=== PATIENT | male | born 1960 | race Caucasian/White ===

== ENCOUNTER 2019-01-10 12:30 | Inpatient (IN) | payer BC ==
[2019-01-29] MEDS ORDERED: MORPHINE SULFATE 4 MG/ML SYRINGE IV PRN (12:44)
[2019-01-29] MEDS ORDERED: HYDROmorphone 0.5 MG/0.5 ML SYRINGE IVP PRN (12:44)
[2019-01-31] MEDS ORDERED: TRANEXAMIC ACID 1,000 MG in SODIUM CHLORIDE 0.9% 100 ML IVPB ONE ×4 (05:00)
[2019-01-31] MEDS ORDERED: ONDANSETRON 4 MG/2 ML VIAL IVP ONE (05:00)
[2019-01-31] MEDS ORDERED: ACETAMINOPHEN TAB 500 MG TAB PO ONE (05:00)
[2019-01-31] MEDS ORDERED: ceFAZolin IN SWFI 2 GM/20 ML SYRINGE IVP ONE (05:00)
[2019-01-31] MEDS ORDERED: ROPIVACAINE 246.25 MG, EPINEPHrine 0.5 MG, KETOROLAC 30 MG, cloNIDine HCL/PF 80 MCG, WA... MISCELLANE ONE ×5 (08:30)
[2019-01-31] MEDS ORDERED: ROPIVACAINE 1,100 MG, SODIUM CHLORIDE 0.9% 500 ML 330 ML MISCELLANE PRN ×2 (10:13)
[2019-01-31] MEDS: LACTATED RINGERS 1,000 ML IV SCH ×2 (10:20→15:43)
[2019-01-31] MEDS ORDERED: LIDOCAINE 1% 20 ML VIAL (10MG/ML) FOR IV START INTRADERMA ONE (10:20)
[2019-01-31] MEDS ORDERED: DEXAMETHASONE SOD PHOS (MDV) 100 MG/10 ML VIAL IV ONE (10:21)
[2019-01-31] MEDS ORDERED: fentaNYL (PF) 50 MCG/ML 2 ML AMP IV ONE (10:31)
[2019-01-31] MEDS ORDERED: MIDAZOLAM 2 MG/2 ML VIAL IV ONE (10:31)
--- NOTE | 2019-01-31 10:49 | P.ONQ ---
Anesthesiology Proc Note - PNB - Peripheral Nerve Block Performed Left Adductor Canal Infusion Time Out Performed: Yes Procedure Start Time: 10:32 Procedure Stop Time: 10:40 Indication: Acute Post-Operative Pain, Requested by physician (Dr Maza) Sedation Type: Sedate with meaningful contact maintained Preparation: Sterile Dressing Position: Supine Catheter: Indwelling Needle Types: On-Q Needle Size: 100mm (4") Needle Gauge: 20 Technique: Ultrasound Injectate: 0.5% Ropivacaine (see comment for volume) (30 mls) Blood Aspirated: No Pain Paresthesia on Injection Noted: No Resistance on Injection: Normal Events: Uneventful and Well Tolerated
[2019-01-31] MEDS ORDERED: TRANEXAMIC ACID 1,000 MG/10 ML VIAL ONE (11:16)
[2019-01-31] MEDS ORDERED: fentaNYL (PF) 50 MCG/ML 2 ML AMP ONE (11:16)
[2019-01-31] MEDS ORDERED: PROPOFOL 10 MG/ML 20 ML VIAL IV ONE (11:16)
[2019-01-31] MEDS ORDERED: MIDAZOLAM 2 MG/2 ML VIAL ONE (11:16)
[2019-01-31] MEDS ORDERED: SODIUM CHLORIDE 0.9% 100 ML BAG ONE (11:16)
[2019-01-31] MEDS ORDERED: ceFAZolin 3,000 MG in SODIUM CHLORIDE 0.9% IRRIGATIO 3,000 ML IRRIGATION ONE (11:19)
[2019-01-31] MEDS ORDERED: HYDROcodone/APAP 7.5-325MG 1 EACH TAB PO PRN (13:33)
[2019-01-31] MEDS ORDERED: HYDROmorphone 0.5 MG/0.5 ML SYRINGE IVP PRN ×2 (13:33)
[2019-01-31] MEDS ORDERED: hydrOXYzine PAMOATE 25 MG CAP PO PRN (13:33)
[2019-01-31] MEDS ORDERED: NA PHOS,M-B/NA PHOS,DI-BA 133 ML ENEMA RECTAL PRN (13:33)
[2019-01-31] MEDS ORDERED: MAGNESIUM HYDROXIDE 2,400 MG/10 ML CUP PO PRN (13:33)
[2019-01-31] MEDS ORDERED: ONDANSETRON 4 MG/2 ML VIAL IVP PRN (13:33)
[2019-01-31] MEDS ORDERED: HYDROmorphone 1 MG/ML 1 ML SYRINGE IVP PRN (13:33)
[2019-01-31] MEDS ORDERED: NALOXONE 0.4 MG/ML 1 ML VIAL IV PRN (13:33)
[2019-01-31] MEDS ORDERED: BISACODYL 10 MG SUPP RECTAL PRN (13:33)
[2019-01-31] MEDS ORDERED: LACTATED RINGERS 1,000 ML IV SCH (13:45)
[2019-01-31 14:00] VITALS: RESP 16
--- NOTE | 2019-01-31 14:04 | XR ---
EXAMINATION TYPE: XR knee limited LT DATE OF EXAM: 01/31/2019 COMPARISON: NONE HISTORY: 58-year-old male evaluation for postoperative abnormality and alignment TECHNIQUE: 2 views FINDINGS: Images show placement of left total knee arthroplasty. Both proximal tibial and distal femoral compon ents of the prosthesis appear well seated without periprosthetic fracture. Soft tissue air as well as intra-articular air compatible with recent operation. Alignment grossly anatomic. IMPRESSION: Uncomplicated postoperative appearance left total knee arthroplasty.
[2019-01-31 15:12] VITALS: BMI 27.2
[2019-01-31 16:45] VITALS: BP 157/88; PULSE 56; TEMP 97.7
--- NOTE | 2019-01-31 18:50 | P.OP ---
Date of Procedure: 01/31/19 Procedure(s) Performed: PREOPERATIVE DIAGNOSIS: Left knee severe osteoarthritis with genu varum POSTOPERATIVE DIAGNOSIS: Left knee severe osteoarthritis with genu varum OPERATION: Left knee cemented total replacement arthroplasty. ANESTHESIA: Spinal ESTIMATED BLOOD LOSS: 100 ml. REGISTERED PHARMACY TECHNICIAN: Keke Villanueva PA-C (assistance with: patient positioning, retraction, exposure, hemostasis, leg positioning, implantation, irrigation, closure, dressing) COMPLICATIONS: None apparent. COMPONENTS IMPLANTED: Persona system from [employer] INDICATIONS: Mr. Jade is a 58-year-old male with a history of left knee osteoarthritis. Conservative treatment has been tried and has been unsuccessful in controlling symptoms adequately. The operation of knee replacement has been discussed at length in the office, as well as potential risks and complications. These are inclusive of, but not limited to: bleeding, infection, scarring, discomfort, blood vessel and nerve damage, need for further surgery, failure to relieve symptoms, persistence, recurrence, or worsening of problems, loosening, dislocation, wear, blood clot, pulmonary embolism, , gait dysfunction, stiffness, and other risks as discussed in the office. The patient elects to proceed and the consent form has been signed. PROCEDURE: The patient was taken to the operating room and positioned on the operating room table in the supine position. Anesthesia was initiated. Care was taken to make sure that all pressure points were adequately padded. The operative lower extremity was prepped and draped in the usual aseptic fashion using ChloraPrep. Ioban drape was used for the case and the patient received intravenous antibiotics within one hour of the incision. A pneumotourniquet and leg velasco were used for the case. The limb was exsanguinated with an Esmarch bandage and the tourniquet was inflated to 350 mmHg. Time-out was called confirming the patient's identity, side, procedure and administration of antibiotics and tranexamic acid, 1 g IV. The incision was then created midline directly over the knee, carried down through skin and into the subcutaneous tissues and down to fascia. Full thickness subcutaneous medial flap was developed. Medial parapatellar arthrotomy was performed and the interior of the knee was inspected. There was end-stage osteoarthritis of the knee with a mild to moderate genu varum type deformity. The fat pad was excised and proximal medial release on the tibia was completed using meticulous dissection and a curved osteotome. The anterior cruciate ligament was taken down. Note was made of significant attrition of the anterior and significant degenerative appearance of the posterior cruciate ligaments. The exposure was excellent. The knee was flexed 90 degrees and the patella was everted. A spot was chosen on the femur approximately 1 cm anterior to the posterior cruciate ligament insertion and an intramedullary hole was created within the femur. The intramedullary guide was then set to 5 degrees of valgus. The distal cutting block was attached and pinned into position. An appropriate amount of distal femoral resection was set. The oscillating saw was then used to make the distal femoral cut. This cut was confirmed to be flat with the flat end of an osteotome . The retractors were placed around the tibia and the tibial surface was addressed. The angle and depth of resection was adjusted using an extramedullary cutting guide. The guide had a built-in 3 degree posterior slope cut. Once the cutting guide was adjusted appropriately and in line with the axis of the tibia and confirmed to be in good position in relation to the second metatarsal and transmalleolar axis, the tibial cut was then created with protection of the posterior neurovascular structures and the collateral ligaments. The tibial cut surface was removed and sized. Femoral sizing was then accomplished using anterior referencing. Care was taken to analyze the posterior condyles for signs of deficiency or severe wear, and adjustments to the guide were made, as appropriate. 3 degree external rotation pins were placed. The cutting jig for the femur was applied to these pins. The planned cuts were further analyzed prior to performing them with the oscillating saw. No femoral notching was produced. Bone fragments were removed and the cut surfaces were finished, as necessary, with a reciprocating saw. Spacer block technique was then used to confirm that the flexion and extension gaps were equal. Soft tissue releases and adjustment of the tibial and/or femoral cuts were made, as necessary, until the gaps were equal. This included release of the posterior cruciate ligament, which was tight in this patient. The femur was then further finished for a posterior cruciate ligament substituting component. Patellar resurfacing was performed using a reamer. The size of the required patellar component was estimated and the patellar surface was then reamed down to a residual thickness which would recreate the upper sioux thickness with the component. The exact placement of the patellar component was adjusted for position based on preoperative x-rays and intraoperative findings. Prior to placing trial components, anesthetic solution consisting of ropivicaine with epinephrine, ketorolac, and clonidine was injected carefully and methodically in a grid pattern using aspiration technique into the soft tissue around the knee circumferentially, starting with the deeper tissues first and progressing to fascia, and then finally the skin/subcutaneous tissue. Particular care was taken when injecting the posterior capsule. The trial components were inserted. The tibial tray was allowed to self center and the patella was noted to track very well. The position of the tibial component was marked and the tibia was then finished for a stemmed tibial component. Cement was mixed on the back table and applied to the final components. Trial components were removed and the cut surfaces of the bone were pulse lavaged thoroughly and dried. Cement was then applied to the tibial surface and pressurized into the surface using finger pressurization technique. The tibial component was then applied and excess cement was removed after it was impacted securely and noted to be flush with the cut surface. In similar fashion, the cement was applied to the cut femoral surface, pressurized in using finger pressurization and the component was impacted into place. Excess cement was removed. The polyethylene spacer was then implanted and locked into position. The patellar component was then applied in similar technique and a patellar clamp was used to hold the patella in place as the cement hardened. Once the cement had fully hardened, the knee was reinspected. Any other cement extrusion was removed and final kinematic testing showed range of motion from 0 to 130 degrees with excellent stability, both medially and laterally and appropriate alignment of the leg. Patellar tracking was excellent. The knee was then thoroughly pulse lavaged with normal saline. The tourniquet was deflated and hemostasis was obtained with electrocautery and IV tranexamic acid, 1 g given prior to inflation of the tourniquet and another gram given at the time of closure. Closure was with #2 Ethibond in the fascia and supplemented with #2 Quill, 2-0 Vicryl suture was used for the subcutaneous tissues and 3-0 Quill for the skin. Dermabond/Steri-Strips were then applied. A lightly compressive dressing was applied using Webril and an Paul wrap. The patient was then transferred to stretcher and taken to the recovery room in stable condition. Sponge and needle counts were correct.
[2019-01-31] MEDS ORDERED: ceFAZolin IN SWFI 2 GM/20 ML SYRINGE IVP SCH (20:00)
[2019-01-31] MEDS ORDERED: SENNOSIDES-DOCUSATE SODIUM 1 EACH TAB PO SCH (21:00)
--- NOTE | 2019-02-01 05:26 | P.PN ---
Progress Note - Text Progress Note Date: 02/01/19 58 yo male status post left total knee replacement. Patient received the adduct or canal catheter. Ropivacaine 0.2% at 8 mls/hr. Patient was seen this AM. Patient was sitting in bed comfortably. VAS score of 0/10, no complaints overnight. Assessment and plan: patient will be sent home with the adductor canal pump. Adequate pain control.
[2019-02-01] MEDS ORDERED: RIVAROXABAN 10 MG TAB PO SCH (09:00)
[2019-02-01] MEDS ORDERED: MELOXICAM 7.5 MG TAB PO SCH (09:00)
== END 2019-01-31 18:32 | disposition home or self-care (01) | DRG 470 ==
LOC: 2ORMAIN 01-31 09:15 → 4SSUR 01-31 13:35
PROVIDERS: ADMIT Orthopaedic Surgery; ATTEND Orthopaedic Surgery
PROC: 0SRD0J9 Replacement of Left Knee Joint with Synthetic Substitute, Cemented, Open Approach (ICD-10-PCS; principal; 2019-01-31 10:55)
DX: M17.12 Unilateral primary osteoarthritis, left knee (principal); M21.169 Varus deformity, not elsewhere classified, unspecified knee; I10 Essential (primary) hypertension; Z79.899 Other long term (current) drug therapy; Z98.41 Cataract extraction status, right eye; Z82.49 Family history of ischemic heart disease and other diseases of the circulatory system
CPT/HCPCS: 88300

== ENCOUNTER → 2019-01-20 | Outpatient (CLI) | payer BC ==
[2019-01-20 07:27] LABS: HCT 47.6 % (39.0-53.0); HGB 15.7 gm/dL (13.0-17.5); MCH 32.3 pg (25.0-35.0); MCHC 32.9 g/dL (31.0-37.0); MCV 98.1 fL (80.0-100.0); Mean Platelet Volume 7.3; Platelet Count 279 k/uL (150-450); RBC 4.86 m/uL (4.30-5.90); RDW 12.7 % (11.5-15.5); WBC 5.7 k/uL (3.8-10.6)
[2019-01-20 07:40] LABS: Partial Thromboplastin Time 24.7 sec (22.0-30.0); Prothrombin Time 10.3 sec (9.0-12.0)
[2019-01-20 07:43] LABS: ALT 46 U/L (21-72); AST 32 U/L (17-59); Albumin 4.7 g/dL (3.5-5.0); Alkaline Phosphatase 74 U/L (38-126); Anion Gap 8 mmol/L; Blood Urea Nitrogen 24 mg/dL (9-20); Calcium 9.9 mg/dL (8.4-10.2); Carbon Dioxide 30 mmol/L (22-30); Chloride 103 mmol/L (98-107); Glucose 114 mg/dL (74-99); Potassium 4.5 mmol/L (3.5-5.1); Sodium 141 mmol/L (137-145); Total Bilirubin 1.1 mg/dL (0.2-1.3); Total Protein 7.4 g/dL (6.3-8.2)
[2019-01-20 08:04] LABS: Appearance,Urine Clear (Clear); Bilirubin,Urine Negative (Negative); Blood,Urine Negative (Negative); Color,Urine Yellow; Glucose,Urine (UA) Negative (Negative); Ketones,Urine Negative (Negative); Leukocyte Esterase,Urine Negative (Negative); Nitrite,Urine Negative (Negative); Protein,Urine Trace (Negative); Urobilinogen,Urine <2.0 mg/dL (<2.0)
== END | disposition home or self-care (01) ==
LOC: LABPAT 06:37
PROVIDERS: ATTEND Orthopaedic Surgery
DX: Z01.818 Encounter for other preprocedural examination (principal); Z01.812 Encounter for preprocedural laboratory examination
CPT/HCPCS: 80053; 81003; 85027; 85610; 85730; 87070; 93005

== ENCOUNTER → 2019-02-16 | Outpatient (CLI) | payer BC ==
[2019-02-16 08:21] LABS: Basophils % (A) 1 %; Eosinophils # (A) 0.2 k/uL (0-0.7); Eosinophils % (A) 2 %; HCT 41.9 % (39.0-53.0); Lymphocytes # (A) 1.6 k/uL (1.0-4.8); Lymphocytes % (A) 22 %; MCH 30.4 pg (25.0-35.0); MCHC 30.9 g/dL (31.0-37.0); MCV 98.3 fL (80.0-100.0); Mean Platelet Volume 6.7; Monocytes # (A) 0.4 k/uL (0-1.0); Monocytes % (A) 6 %; Neutrophils % (A) 68 %; RBC 4.26 m/uL (4.30-5.90); RDW 13.3 % (11.5-15.5); WBC 7.4 k/uL (3.8-10.6)
[2019-02-16 08:28] LABS: Platelet Count 645 k/uL (150-450)
[2019-02-16 11:30] LABS: LDL Cholesterol,Calculated 123.2 mg/dL (0.0-131.0); VLDL Calculation 31.8 mg/dL (5.00-40.00)
== END | disposition home or self-care (01) ==
LOC: LABWHC1 07:01
PROVIDERS: ATTEND Family Medicine
DX: Z00.01 Encounter for general adult medical examination with abnormal findings (principal); I10 Essential (primary) hypertension; Z13.220 Encounter for screening for lipoid disorders; Z12.5 Encounter for screening for malignant neoplasm of prostate
CPT/HCPCS: 80061; 85025; 36415; G0103

== ENCOUNTER 2025-04-28 07:38 | Inpatient (IN) | payer MEDICARE, OTHER ==
[2025-04-28] MEDS: SODIUM CHLORIDE 0.9% 1,000 ML IV ONE (08:16)
[2025-04-28] MEDS: KETOROLAC 15 MG/ML 1 ML VIAL IVP STA (08:16)
[2025-04-28] MEDS: ONDANSETRON 4 MG/2 ML VIAL IVP STA (08:19)
[2025-04-28] MEDS: MORPHINE SULFATE 2 MG/ML SYRINGE IVP STA (08:20)
[2025-04-28] MEDS: ORPHENADRINE 30 MG/ML 2 ML VIAL IVP STA (09:18)
[2025-04-28] MEDS: HYDROmorphone 1 MG/ML 1 ML SYRINGE IVP STA (10:10)
--- NOTE | 2025-04-28 11:05 | XR ---
EXAMINATION TYPE: XR Hip RT and AP Pelvis DATE OF EXAM: 04/28/2025 10:42 AM COMPARISON: None CLINICAL INDICATION: Male, 65 years old with history of fall, hip pain, pain TECHNIQUE: XR Hip RT and AP Pelvis; hip was examined in the frontal and lateral projections and a AP pelvis. FINDINGS: Acute fracture through the intertrochanteric region of the right femur with distraction up to 9 mm. There is cam deformities of the femoral heads degeneration and joint space tearing ossified formation. IMPRESSION: Acute intertrochanteric fracture of the right proximal femur. With mild displacement. [facility], , 04/28/2025 11:02 AM
[2025-04-28] MEDS ORDERED: KETOROLAC 15 MG/ML 1 ML VIAL IVP PRN (11:48)
[2025-04-28] MEDS ORDERED: NALOXONE 0.4 MG/ML 1 ML VIAL IV PRN (11:48)
--- NOTE | 2025-04-28 11:52 | ED ---
General Adult HPI - General Chief complaint: Fall Stated complaint: Fall-Hip Injury Time Seen by Provider: 04/28/25 07:45 Source: patient, EMS, RN notes reviewed, old records reviewed Mode of arrival: EMS Limitations: no limitations - History of Present Illness Initial comments: Patient is a 65-year-old male who presents emergency department for mechanical fall. Patient was swimming which she does on a regular basis when he slipped on the wet ground and landed hard on his right hip and right elbow. Primary complaint is right hip pain. Patient has a small abrasion to the right elbow however has full range of motion with no pain. Did not hit his head. Not lose consciousness. Is not on blood thinners. Patient is relatively healthy with a history of hypertension hyperlipidemia. He is athletic and chronically has heart rates in the high 40s and 50s. Denies any other acute complaints. - Related Data Home Medications Medication Instructions Recorded Confirmed amLODIPine BESYLATE/BENAZEPRIL 1 cap PO HS 01/21/19 04/28/25 [amLODIPine BESYLATE/BENAZEPRIL 5-20 MG] Allergies Allergy/AdvReac Type Severity Reaction Status Date / Time No Known Allergies Allergy Verified 04/28/25 13:57 Review of Systems ROS Statement: Those systems with pertinent positive or pertinent negative responses have been documented in the HPI. Review of Systems: CONST: Denies fever EYES: Denies blurry vision ENT: Denies nasal congestion C/V: Denies Chest pain RESP: Denies shortness of breath GI: Denies abdominal pain : Denies dysuria SKIN: Endorses right elbow abrasion MSK: Endorses right hip pain NEURO: Denies headache ROS Other: All systems not noted in ROS Statement are negative. Past Medical History Past Medical History: Eye Disorder, Hyperlipidemia, Hypertension, Osteoarthritis (OA), Prostate Disorder Additional Past Medical History / Comment(s): HX MURMUR. OCC HEART HAS "SKIPPED BEAT." LT EYE LID SURG PLANNED D/T TEAR DUCT ISSUE. BORDERLINE ELEV CHOLESTEROL. SL BPH. VARICOSE VEINS. History of Any Multi-Drug Resistant Organisms: None Reported Past Surgical History: Orthopedic Surgery Additional Past Surgical History / Comment(s): JAW SURGERY, HAS WIRES. EXC RT CATARACT. RT ELBOW, RT SHOULDER SURG - REMOVED CLAVICLE; LT KNEE SCOPE. Past Anesthesia/Blood Transfusion Reactions: Motion Sickness Additional Past Anesthesia/Blood Transfusion Reaction / Comment(s): SOME CONFUSION WHEN AWAKENING Past Psychological History: No Psychological Hx Reported Past Alcohol Use History: Occasional Past Drug Use History: None Reported - Past Family History Mother Family Medical History: No Reported History General Exam - General Exam Comments Initial Comments: General: Appears in moderate distress secondary to right hip pain HEAD: Normal with no signs of head trauma. Negative Greenberg sign. Negative raccoon eyes. EYES: PERRLA, EOMI, conjunctiva normal, no discharge. Pupils are 3 mm and equal bilaterally. ENT: Hearing grossly intact, normal oropharynx. RESPIRATORY: Clear breath sounds bilaterally. No wheezes, rales, or rhonchi. C/V: Regular rate and rhythm. S1 and S2 auscultated, no edema, peripheral pulses 2+ and intact throughout ABD: Abd is soft, nontender, nondistended EXT: Decreased range of motion of the right hip secondary to pain. No obvious shortening of the right lower extremity. Tenderness palpation of the lateral aspect of the right hip. Pelvis is stable. No midline cervical, thoracic, lumbar spine tenderness to palpation. Neurovasc intact throughout. SKIN: Facial abrasions over right elbow. NEURO: Alert and oriented x 4. No focal deficits. GCS 15. Limitations: no limitations Course Vital Signs 04/28/25 04/28/25 04/28/25 07:40 08:10 09:24 Temperature 97.8 F Pulse Rate 50 L 60 Respiratory 19 19 18 Rate Blood Pressure 146/81 124/83 O2 Sat by Pulse 96 97 Oximetry 04/28/25 04/28/25 04/28/25 10:13 11:05 12:00 Temperature Pulse Rate 58 L 60 56 L Respiratory 19 15 15 Rate Blood Pressure 143/77 O2 Sat by Pulse 95 95 95 Oximetry 04/28/25 13:07 Temperature Pulse Rate 63 Respiratory 16 Rate Blood Pressure 142/75 O2 Sat by Pulse 95 Oximetry Medical Decision Making - Medical Decision Making Was pt. sent in by a medical professional or institution (, PA, CLERK OPERATOR, urgent care, hospital, or half-way...) When possible be specific @ -No Did you speak to anyone other than the patient for history (EMS, parent, family, police, friend...)? What history was obtained from this source @ -No Did you review nursing and triage notes (agree or disagree)? Why? @ -I reviewed and agree with nursing and triage notes Were old charts reviewed (outside hosp., previous admission, EMS record, old EKG, old radiological studies, urgent care reports/EKG's, half-way records)? Report findings @ -No old charts were reviewed Differential Diagnosis (chest pain, altered mental status, abdominal pain women, abdominal pain men, vaginal bleeding, weakness, fever, dyspnea, syncope, headache, dizziness, GI bleed, back pain, seizure, CVA, palpatations, mental health, musculoskeletal)? @ -Differential Musculoskeletal Muscular strain, contusion, ligament sprain, fracture, arthritis, septic a rthritis, bursitis, cellulitis, muscle spasm, nerve compression, DVT, arterial occlusion, herpes zoster, electrolyte abnormality, tumor.... This is not meant to be in all inclusive list EKG interpreted by me (3pts min.). @ -As above X-rays interpreted by me (1pt min.). @ -Hip x-ray reveals a right sided intertrochanteric fracture of the hip with mild displacement. Chest x-ray reveals no obvious acute cardiopulmonary process. CT interpreted by me (1pt min.). @ -None done U/S interpreted by me (1pt. min.). @ -None done What testing was considered but not performed or refused? (CT, X-rays, U/S, labs)? Why? @ -None What meds were considered but not given or refused? Why? @ -None Did you discuss the management of the patient with other professionals (professionals i.e. , PA, CLERK OPERATOR, lab, RT, psych nurse, community mental health social worker, washroom attendant, teacher, conservation science officer, keycase assembler)? Give summary @ -Discussed with EVA Thompson, who works for Dr. Yap of orthopedics. Patient does have prior knee surgeries with Dr. Erickson in the same group. Accepted the admission. Patient made NPO. Consult placed to medicine, Dr. Castro who accepted the consult. Was smoking cessation discussed for >3mins.? @ -No Was critical care preformed (if so, how long)? @ -No Were there social determinants of health that impacted care today? How? (Homelessness, low income, unemployed, alcoholism, drug addiction, transpo rtation, low edu. Level, literacy, decrease access to med. care, half-way, rehab)? @ -No Was there de-escalation of care discussed even if they declined (Discuss DNR or withdrawal of care, Hospice)? DNR status @ -No What co-morbidities impacted this encounter? (DM, HTN, Smoking, COPD, CAD, Cancer, CVA, ARF, Chemo, Hep., AIDS, mental health diagnosis, sleep apnea, morbid obesity)? @ -None Was patient admitted / discharged? Hospital course, mention meds given and route, prescriptions, significant lab abnormalities, going to OR and other pertinent info. @ -Patient presents with mechanical fall. Primary complaint is right hip pain. Does not meet trauma activation criteria. Patient is up-to-date on tetanus. He will be given IV analgesia medications and we will obtain x-rays of the hip. He was in agreement this plan. Vitals are within acceptable limits. There was a long delay in obtaining x-rays as patient was very uncomfortable, initial rounds of pain medications did not help. Eventually pain was under control and we will but did obtain x-ray which does show a right sided intertro chanteric fracture of the right hip. Mild displacement. 5 to the patient. Patient will be admitted to orthopedics. Had prior knee surgeries done with Dr. Maza and therefore I spoke with MLNancy Thompson who accepted the admission under Dr. Yap. Patient made n.p.o. for now. Consult placed to Dr. Castro for medical management. Patient made NPO. Undiagnosed new problem with uncertain prognosis? @ -No Drug Therapy requiring intensive monitoring for toxicity (Heparin, Nitro, Insulin, Cardizem)? @ -No Were any procedures done? @ -No Diagnosis/symptom? @ -Fall, right intertrochanteric fracture of the hip Acute, or Chronic, or Acute on Chronic? @ -Acute Uncomplicated (without systemic symptoms) or Complicated (systemic symptoms)? @ -Complicated Side effects of treatment? @ -No Exacerbation, Progression, or Severe Exacerbation? @ -No Poses a threat to life or bodily function? How? (Chest pain, [place], [place], pneumonia, PE, COPD, DKA, ARF, appy, cholecystitis, CVA, Diverticulitis, Homicidal, Suicidal, threat to staff... and all critical care pts) @ -Yes - Lab Data Result diagrams: 04/28/25 11:53 04/28/25 11:53 - EKG Data -: EKG Interpreted by Me EKG Comments: 12-lead Electrocardiogram Interpretation Note EKG was reviewed and interpreted by myself. 12-lead ECG performed at 1003 is interpreted by me as revealing sinus bradycardia at a rate of 57 beats per minute. Unity is normal. HI interval is 205 ms, QRS durations 80 ms, QTc is 431 ms.. There were no ST or T wave abnormalities to suggest myocardial ischemia or injury. R wave progression across the precordium was satisfactory. By my interpretation this EKG is non-diagnostic for acute ischemia. Disposition Clinical Impression: Fall, Intertrochanteric fracture of right hip Disposition: ADMITTED IP TO THIS HOSP Condition: Stable Time of Disposition: 11:35
[2025-04-28 12:01] LABS: Basophils # (A) 0.03 10*3/uL (0.00-0.10); Basophils % (A) 0.2 %; HCT 41.1 % (39.6-50.0); HGB 14.1 g/dL (13.0-17.0); Lymphocytes # (A) 0.78 10*3/uL (0.90-5.00); Lymphocytes % (A) 5.8 %; MCH 33.3 pg (27.0-32.0); MCHC 34.3 g/dL (32.0-37.0); MCV 97.2 fL (80.0-97.0); Monocytes # (A) 0.65 10*3/uL (0.20-1.00); Monocytes % (A) 4.8 %; Neutrophils # (A) 11.91 10*3/uL (1.80-7.70); Neutrophils % (A) 88.9 %; Platelet Count 232 10*3/uL (140-440); RBC 4.23 10*6/uL (4.40-5.60); RDW 12.4 % (11.5-14.5); WBC 13.41 10*3/uL (4.50-10.00)
[2025-04-28 12:08] LABS: INR 1.1 (<1.2); Partial Thromboplastin Time 22.3 sec (22.0-30.0); Prothrombin Time 11.8 sec (10.0-12.5)
[2025-04-28 12:17] LABS: ALT 31 U/L (4-49); AST 28 U/L (17-59); African American GFR (CKD) >90 (>60 ml/min/1.73 sqM); Albumin 4.4 g/dL (3.5-5.0); Alkaline Phosphatase 77 U/L (38-126); Anion Gap 9 mmol/L; Blood Urea Nitrogen 19 mg/dL (9-20); Calcium 9.2 mg/dL (8.4-10.2); Carbon Dioxide 23 mmol/L (22-30); Chloride 107 mmol/L (98-107); Glucose 111 mg/dL (74-99); Non-African American GFR(CKD) >90 (>60 ml/min/1.73 sqM); Sodium 139 mmol/L (137-145); Total Bilirubin 1.1 mg/dL (0.2-1.3); Total Protein 7.2 g/dL (6.3-8.2)
[2025-04-28] MEDS: SODIUM CHLORIDE 0.9% 1,000 ML IV SCH (13:06)
--- NOTE | 2025-04-28 13:56 | XR ---
EXAMINATION TYPE: XR chest 1V portable DATE OF EXAM: 04/28/2025 1:30 PM COMPARISON: None CLINICAL INDICATION: Male, 65 years old with history of fall; TECHNIQUE: XR chest 1V portable Frontal view of the chest. FINDINGS: Lungs/Pleura: There is no evidence of pleural effusion, focal consolidation, or pneumothorax. Pulmonary vascularity: Unremarkable. Heart/mediastinum: Cardiomediastinal silhouette is unremarkable. Musculoskeletal: No acute osseous pathology. IMPRESSION: No acute cardiopulmonary disease/process. [facility], , 04/28/2025 1:53 PM
--- NOTE | 2025-04-28 14:39 | P.CONS ---
History of Present Illness - Reason for Consult Consult date: 04/28/25 Medical management Requesting physician: Todd Yap - Chief Complaint Fall - History of Present Illness Very pleasant 65-year-old patient follows Dr. Stevens. Chronic medical conditions include hyperlipidemia, essential hypertension, osteoarthritis, BPH. Patient had arrhythmia and is worn a monitor in the past. No particular outcome. Has varicose veins. Patient is extremely active and does 3000 yards of swimming every day. Patient after coming out of the pool of the [facility] today was wearing his fence. The floor was wet. He slipped and fell. Hitting the right side. Patient is in an acute ID fracture of the right proximal femur. Mild displacement. Pain is well-controlled at rest. Patient denies any other cardiac history. No cardiac symptoms otherwise. Review of systems: GEN.: None EYES: None HEENT: None NECK: None RESPIRATORY: None CARDIOVASCULAR: None GASTROINTESTINAL: None GENITOURINARY: None MUSCULOSKELETAL: [Joint pains LYMPHATICS: None HEMATOLOGICAL: None PSYCHIATRY: None NEUROLOGICAL: None Social history: No smoking. Alcohol occasionally. 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 Lives with his Physical examination: VITAL SIGNS: Afebrile, 63, 16, 142 x 75, 95% room air GENERAL: BMI 26.1, laying in bed awake comfortable. EYES: Pupils equal. Conjunctiva saúl l. HEENT: External appearance of nose and ears normal, oral cavity grossly normal. NECK: JVD not raised; masses not palpable. HEART: First and second heart sounds are normal; no edema. LUNGS: Respiratory rate normal; clear to auscultation. ABDOMEN: Soft, nontender, liver spleen not palpable, no masses palpable. PSYCH: Alert and oriented x3; mood and affect saúl l. MUSCULOSKELETAL:No Clubbing/cyanosis;muscles-grossly intact. OA. Limited range of motion right hip. Externally rotated NEUROLOGICAL: Cranial nerves grossly intact; no facial asymmetry, power and sensation grossly intact. LYMPHATICS: No lymph nodes palpable in the axilla and neck INVESTIGATIONS, reviewed in the clinical context: April 28, 2025: White count 13.4 hemoglobin 14.1 platelets 232 potassium 4 creatinine 0.73 EKG tracing personally reviewed by me-sinus rhythm. Heart rate 57 Chest x-ray film personally reviewed by me-unremarkable Right hip x-ray: Right proximal femur IT fracture Assessment plan: - Acute right proximal IT fracture secondary to fall. Mechanical Pain control. Patient may be going for surgical intervention this afternoon. - Essential hypertension Resume home medication - BPH Does not take any medications. - Primary osteoarthritis Tylenol as needed - Full code Perioperative cardiovascular risk assessment: Patient is rather active. Does 3000 units of swimming every day. Denies any cardiac history. Has no active cardiac or respiratory symptoms. Patient is a low risk for the same. Otherwise medically stable to proceed with surgery. This was discussed with the patient and the . Thank you Dr. Yap Past Medical History Past Medical History: Eye Disorder, Hyperlipidemia, Hypertension, Osteoarthritis (OA), Prostate Disorder Additional Past Medical History / Comment(s): HX MURMUR. OCC HEART HAS "SKIPPED BEAT." LT EYE LID SURG PLANNED D/T TEAR DUCT ISSUE. BORDERLINE ELEV CHOLESTEROL. SL BPH. VARICOSE VEINS. History of Any Multi-Drug Resistant Organisms: None Reported Past Surgical History: Orthopedic Surgery Additional Past Surgical History / Comment(s): JAW SURGERY, HAS WIRES. EXC RT CATARACT. RT ELBOW, RT SHOULDER SURG - REMOVED CLAVICLE; LT KNEE SCOPE. Past Anesthesia/Blood Transfusion Reactions: Motion Sickness Additional Past Anesthesia/Blood Transfusion Reaction / Comm: SOME CONFUSION WHEN AWAKENING Past Psychological History: No Psychological Hx Reported Past Alcohol Use History: Occasional Past Drug Use History: None Reported - Past Family History Mother Family Medical History: No Reported History Medications and Allergies Home Medications Medication Instructions Recorded Confirmed Type amLODIPine BESYLATE/BENAZEPRIL 1 cap PO HS 01/21/19 04/28/25 History [amLODIPine BESYLATE/BENAZEPRIL 5-20 MG] Allergies Allergy/AdvReac Type Severity Reaction Status Date / Time No Known Allergies Allergy Verified 04/28/25 13:57 Physical Exam Vitals: Vital Signs Temp Pulse Resp BP Pulse Ox 04/28/25 13:07 63 16 142/75 95 04/28/25 12:00 56 L 15 95 04/28/25 11:05 60 15 95 04/28/25 10:13 58 L 19 143/77 95 04/28/25 09:24 18 04/28/25 08:10 60 19 124/83 97 04/28/25 07:40 97.8 F 50 L 19 146/81 96 Intake and Output 04/27/25 04/28/25 04/28/25 22:59 06:59 14:59 Other: Weight 89.811 kg Results CBC & Chem 7: 04/28/25 11:53 04/28/25 11:53 Labs: Abnormal Lab Results - Last 24 Hours (Table) 04/28/25 04/28/25 Range/Units 11:53 11:53 WBC 13.41 H (4.50-10.00) 10*3/uL RBC 4.23 L (4.40-5.60) 10*6/uL MCV 97.2 H (80.0-97.0) fL MCH 33.3 H (27.0-32.0) pg Neutrophils # 11.91 H (1.80-7.70) 10*3/uL Lymphocytes # 0.78 L (0.90-5.00) 10*3/uL Eosinophils # 0.00 L (0.04-0.35) 10*3/uL Glucose 111 H (74-99) mg/dL
[2025-04-28] MEDS: HYDROmorphone 1 MG/ML 1 ML SYRINGE IVP PRN (16:47)
[2025-04-28] MEDS: amLODIPine 5 MG TAB PO SCH (21:02)
[2025-04-28] MEDS: lisinopriL 20 MG TAB PO SCH (21:02)
[2025-04-28] MEDS: ENOXAPARIN 40 MG/0.4 ML SYRINGE SQ SCH (21:02)
[2025-04-28] MEDS ORDERED: HYDROcodone/APAP 7.5-325MG 1 EACH TAB PO PRN ×2 (22:23→22:29)
[2025-04-29] MEDS: HYDROcodone/APAP 7.5-325MG 1 EACH TAB PO PRN (00:24)
--- NOTE | 2025-04-29 08:46 | P.HPOR ---
History of Present Illness H&P Date: 04/29/25 Chief Complaint: Right hip fracture Patient is a 65-year-old male seen at bedside this am. He was admitted through the ED on 04/28/25 after a mechanical fall. Patient was swimming which he does on a regular basis when he slipped on the wet ground and landed hard on his right hip and right elbow. Primary complaint is right hip pain. Patient has a small abrasion to the right elbow however has full range of motion with no pain. Did not hit his head. He did Not lose consciousness. He Is not on blood thinners. Patient is relatively healthy with a history of hypertension hyperlipidemia. He is athletic and chronically has heart rates in the high 40s and 50s. Denies any other acute complaints. Review of Systems All systems: negative Constitutional: Denies chills, Denies fever Eyes: denies blurred vision, denies pain Ears, nose, mouth and throat: Denies headache, Denies sore throat Cardiovascular: Denies chest pain, Denies shortness of breath Respiratory: Denies cough Gastrointestinal: Denies abdominal pain, Denies diarrhea, Denies nausea, Denies vomiting Musculoskeletal: Denies myalgias Integumentary: Denies pruritus, Denies rash Neurological: Denies numbness, Denies weakness Psychiatric: Denies anxiety, Denies depression Endocrine: Denies fatigue, Denies weight change Past Medical History Past Medical History: Eye Disorder, Hyperlipidemia, Hypertension, Osteoarthritis (OA), Prostate Disorder Additional Past Medical History / Comment(s): HX MURMUR. OCC HEART HAS "SKIPPED BEAT." LT EYE LID SURG PLANNED D/T TEAR DUCT ISSUE. BORDERLINE ELEV CHOLESTER OL. SL BPH. VARICOSE VEINS. History of Any Multi-Drug Resistant Organisms: None Reported Past Surgical History: Orthopedic Surgery Additional Past Surgical History / Comment(s): JAW SURGERY, HAS WIRES. EXC RT CATARACT. RT ELBOW, RT SHOULDER SURG - REMOVED CLAVICLE; LT KNEE SCOPE. Past Anesthesia/Blood Transfusion Reactions: Motion Sickness Additional Past Anesthesia/Blood Transfusion Reaction / Comment(s): SOME CONFUSION WHEN AWAKENING Past Psychological History: No Psychological Hx Reported Smoking Status: Never smoker Past Alcohol Use History: Occasional Past Drug Use History: None Reported - Past Family History Mother Family Medical History: No Reported History Medications and Allergies Home Medications Medication Instructions Recorded Confirmed Type amLODIPine BESYLATE/BENAZEPRIL 1 cap PO HS 01/21/19 04/28/25 History [amLODIPine BESYLATE/BENAZEPRIL 5-20 MG] Allergies Allergy/AdvReac Type Severity Reaction Status Date / Time No Known Allergies Allergy Verified 04/28/25 13:57 Physical Examination Inspection of the lower extremities shows a shortened externally rotated right lower extremity. There are no wounds, erythema or ecchymoses. The knee is nontender without effusion. He has painless range of motion of the knee, ankle foot and toes. Range of motion of the right hip is not tested due to fracture. Neurovascular status is intact throughout the lower extremity with motor and sensation fully intact. Calf is soft and nontender. 2+ dorsalis pedis pulse and less than 2 second cap refill is present. Results - Labs Labs: Abnormal Lab Results - Last 24 Hours (Table) 04/28/25 04/28/25 Range/Units 11:53 11:53 WBC 13.41 H (4.50-10.00) 10*3/uL RBC 4.23 L (4.40-5.60) 10*6/uL MCV 97.2 H (80.0-97.0) fL MCH 33.3 H (27.0-32.0) pg Neutrophils # 11.91 H (1.80-7.70) 10*3/uL Lymphocytes # 0.78 L (0.90-5.00) 10*3/uL Eosinophils # 0.00 L (0.04-0.35) 10*3/uL Glucose 111 H (74-99) mg/dL H & H 04/28/25 Range/Units 11:53 Hgb 14.1 (13.0-17.0) g/dL Hct 41.1 (39.6-50.0) % Coagulation 04/28/25 Range/Units 11:53 INR 1.1 (<1.2) Result Diagrams: 04/28/25 11:53 04/28/25 11:53 - Diagnostic results Hip x-ray: report reviewed, image reviewed Assessment and Plan (1) Intertrochanteric fracture of right hip Narrative/Plan: Plan is to proceed with surgical intervention including gamma nail with IM hip screw for right IT fracture. Patient understands risks and benefits. Questions have been answered and he desires to proceed. He will resume medical management and routine post op care following Current Visit: Yes Status: Acute Code(s): S72.141A - DISPLACED INTERTROCHANTERIC FRACTURE OF RIGHT FEMUR, INIT SNOMED Code(s): 950797074 Time with Patient: Less than 30
[2025-04-29] MEDS ORDERED: PANTOPRAZOLE 40 MG/10 ML VIAL IV SCH (09:00)
[2025-04-29] MEDS ORDERED: NA PHOS,M-B/NA PHOS,DI-BA 133 ML ENEMA RECTAL PRN (09:04)
[2025-04-29] MEDS ORDERED: bisacodyL 10 MG SUPP RECTAL PRN (09:04)
[2025-04-29] MEDS ORDERED: HYDROmorphone 0.5 MG/0.5 ML SYRINGE IVP PRN ×2 (09:04)
[2025-04-29] MEDS ORDERED: traMADol 50 MG TAB PO PRN (09:04)
[2025-04-29] MEDS: MIDAZOLAM 2 MG/2 ML VIAL IV ONE (09:25)
[2025-04-29] MEDS ORDERED: GLYCOPYRROLATE 0.2 MG/ML 2 ML VIAL ONE (09:36)
[2025-04-29] MEDS ORDERED: PROPOFOL 10 MG/ML 20 ML VIAL IV ONE (09:36)
[2025-04-29] MEDS ORDERED: DEXAMETHASONE SOD PHOSPHATE 4 MG/ML 1 ML VIAL ONE (09:36)
[2025-04-29] MEDS ORDERED: ROCURONIUM 10 MG/ML (5 ML VIAL) IV ONE (09:36)
[2025-04-29] MEDS ORDERED: WATER FOR INJECTION, STERILE 10 ML VIAL IV ONE (09:36)
[2025-04-29] MEDS ORDERED: SUGAMMADEX SODIUM 100 MG/ML SYR IV ONE (09:36)
[2025-04-29] MEDS ORDERED: ePHEDrine 50 MG/ML 1 ML VIAL ONE (09:36)
[2025-04-29] MEDS ORDERED: MIDAZOLAM 2 MG/2 ML VIAL ONE (09:36)
[2025-04-29] MEDS ORDERED: LIDOCAINE 1% INJ 10MG/ML (20 ML MDV) ONE (09:36)
[2025-04-29] MEDS ORDERED: SUCCINYLCHOLINE CHLORIDE 200 MG/10 ML VIAL IV ONE (09:36)
[2025-04-29] MEDS ORDERED: fentaNYL (PF) 50 MCG/ML 2 ML AMP ONE (09:36)
[2025-04-29] MEDS ORDERED: ROPIVACAINE 5 MG/ML 30 ML VIAL ONE (09:36)
[2025-04-29] MEDS ORDERED: PHENYLEPHRINE-0.9% NACL SYG 1,000 MCG/10 ML SYRINGE ONE (09:36)
[2025-04-29] MEDS: SODIUM CHLORIDE 0.9% 100 ML with ceFAZolin 2,000 MG IV ONE (09:41)
[2025-04-29] MEDS: LACTATED RINGERS 1,000 ML IV ONE ×3 (09:41→10:44)
[2025-04-29 09:44] LABS: Basophils # (A) 0.02 X 10*3/uL (0.00-0.10); Basophils % (A) 0.2 %; Eosinophils # (A) 0.02 X 10*3/uL (0.04-0.35); Eosinophils % (A) 0.2 %; HCT 43.1 % (39.6-50.0); HGB 14.2 g/dL (13.0-17.0); Lymphocytes # (A) 1.46 X 10*3/uL (0.90-5.00); Lymphocytes % (A) 15.2 %; MCH 32.9 pg (27.0-32.0); MCHC 32.9 g/dL (32.0-37.0); Mean Platelet Volume 10.5 FL (9.5-12.2); Monocytes # (A) 1.18 X 10*3/uL (0.20-1.00); Monocytes % (A) 12.3 %; NRBC Per 100 WBC 0 X 10*3/uL (0.00-0.01); Neutrophils # (A) 6.92 X 10*3/uL (1.80-7.70); Neutrophils % (A) 71.8 %; Platelet Count 214 X 10*3/uL (140-440); RBC 4.31 X 10*6/uL (4.40-5.60); RDW 12.7 % (11.5-14.5); WBC 9.63 X 10*3/uL (4.50-10.00)
[2025-04-29 09:46] LABS: ALT 28 U/L (10-49); AST 26 U/L (14-35); Albumin 4.2 g/dL (3.8-4.9); Albumin/Globulin Ratio 1.62 Ratio (1.60-3.17); Alkaline Phosphatase 77 U/L (41-126); BUN/Creat Ratio 19.12 Ratio (12.00-20.00); Blood Urea Nitrogen 15.3 mg/dL (9.0-27.0); Calcium 8.8 mg/dL (8.7-10.3); Carbon Dioxide 24.2 mmol/L (21.6-31.8); Chloride 103 mmol/L (96-109); Globulin 2.6 g/dL (1.6-3.3); Glucose 107 mg/dL (70-110); Potassium 3.9 mmol/L (3.5-5.5); Sodium 139 mmol/L (135-145); Total Bilirubin 1.3 mg/dL (0.3-1.2); Total Protein 6.8 g/dL (6.2-8.2)
--- NOTE | 2025-04-29 11:13 | FL ---
EXAMINATION TYPE: FL guidance operating room, XR Hip Complete RT DATE OF EXAM: 04/29/2025 10:55 AM COMPARISON: Pre Operative Images if available both CT/MRI or plain film CLINICAL INDICATION: Male, 65 years old with history of ORIF R HIP; TECHNIQUE: FL guidance operating room, XR Hip Complete RT, multiple fluoroscopic images provided for procedure. DAP: 2.1972 mGym2 Gycm2 uGym2 cGycm2 or equivalent. FINDINGS: Fluoroscopic images during internal fixation demonstrate hardware in appropriate position. Hardware a ppears intact. No immediate complication identified. IMPRESSION: 1. No evidence for intraoperative complication. 2. Please see the operative/procedural note for further details. [facility], , 04/29/2025 11:11 AM
[2025-04-29] MEDS: HYDROmorphone 0.5 MG/0.5 ML SYRINGE IVP PRN (11:25)
--- NOTE | 2025-04-29 12:17 | OP ---
OPERATIVE REPORT DATE OF SERVICE : 04/29/2025 PARADICHLOROBENZENE MACHINE OPERATOR: Jay Whelan PA-C. PREOPERATIVE DIAGNOSIS: Right intertrochanteric hip fracture. POSTOPERATIVE DIAGNOSIS: Right intertrochanteric hip fracture. OPERATION: Right intramedullary hip screw fixation for right intertrochanteric hip fracture. ANESTHESIA: General endotracheal. ESTIMATED BLOOD LOSS: 25 mL. TOURNIQUET: None. DRAINS: None. COMPLICATIONS: None apparent. DISPOSITION: Postanesthesia Care Unit. INDICATIONS: Inocente is a very pleasant 65-year-old male who yesterday afternoon was swimming laps at the [facility]. He got out of the pool with his fins on and slipped on the pool deck directly onto his right hip. He had immediate right groin pain. He was brought to [facility]. Workup including x-rays revealed a minimally displaced 2-part intertrochanteric hip fracture. He was admitted to my service. He is a very active 65- year-old male. Recommendation was for intramedullary hip screw fixation for his right intertrochanteric hip fracture. The patient would like to proceed with operative intervention. The risks of procedure were discussed with him in detail. These risks include, but are not limited to risk of infection, nerve damage, bleeding, pain, and a small risk of deep vein thrombosis, which could lead to fatal pulmonary embolism. There is also small risk of loosening the implant, and failure of the fracture to heal. This could require revision operation. The patient understood the risks. All of his questions with regard to the risks of the procedure were answered to his satisfaction. Appropriate informed consent was obtained. DESCRIPTION OF PROCEDURE: The patient was identified in preoperative holding area. Surgical site was marked by both the patient and myself. He was given 2 g of Ancef IV for prophylactic purposes. He was then transported to the operative suite. He was placed supine on the operating room table. General anesthetic was then administered, dosed per the Anesthesia Department without apparent complications. He was then transferred onto the fracture table, well-padded in preparation for surgery. The fluoroscopy was then brought in. The fracture was reduced with traction and rotation. The rotation of the leg was also checked at this point in time and was appropriate. At this point, we proceeded with operative intervention. The patient's right lower extremity was then prepped and draped in usual sterile fashion. Standard surgical pause undertaken to ensure that we were operating the correct site and that appropriate preoperative antibiotics were given. All staff were in agreement, and we proceeded. The fluoroscopy was then brought in. The tip of the greater trochanter was then identified. A 3 cm incision starting at the tip of the greater trochanter extending proximally in line with the shaft of the femur was then made. Dissection was carried down sharply to the tensor fascia. The tensor fascia was then incised in line with the incision. I then utilized a curved awl with a threaded guide pin. This was placed on the medial aspect of the tip of the greater trochanter. Its placement was checked with fluoroscopic imaging. The threaded guide pin was then advanced down the center of the femur. Again, its proper placement was checked with fluoroscopic imaging. I then proceeded with the proximal reamer to gain access to the proximal humerus. The soft tissue protector was then placed over the threaded guide pin and then the reamer was then taken down to just superior aspect of the lesser trochanter. The threaded guide pin was then removed and a ball-tipped guidewire was then placed through the opening and down the shaft of the femur. Again, its proper placement was confirmed with fluoroscopic imaging. I then reamed the femoral canal starting with a 9 mm reamer and incrementally increasing up to a 13 mm reamer to allow for exceptions of the intramedullary nail. I then had the [place] u.s. representative opened 125-degree by 11 mm x 180 mm gamma nail. This was inserted onto the .net programmer on the back table. The gamma nail was then inserted over the ball-tipped guidewire. It was then advanced down the shaft of the femur. The ball-tipped guidewire was removed. Again, placement of the intramedullary nail was confirmed with fluoroscopic imaging. I then proceeded with placement of the hip screw. A second small incision was made on the lateral aspect of the thigh. The threaded guide pin was then placed, flushed against the lateral cortex of the femur. The threaded guide pin was then advanced through the nail and into the center of the femoral head on both AP and lateral views. The tip-apex distance was appropriate. Again, this was all confirmed with fluoroscopic imaging. I then measured for length. The reamer was set to 105. The threaded guide pin was then over-reamed using fluoroscopic guidance. His bone quality was excellent. I then had the u.s. representative opened a 105 mm x 10 mm partially-threaded cannulated hip screw. This was then placed over the threaded guide pin. It was then advanced into the center of the femoral head on both AP and lateral views. The tip-apex distance was appropriate. The bite in the bone was excellent. I then proceeded to tighten the set screw. This was tightened down fully and then backed off one quarter turn to allow for compression at the fracture site. Prior to placing the set screw, I did compress the fracture site through the compressive device of the .net programmer as well. I then proceeded with placement of the distal locking screw. A third small incision was made on the lateral thigh. The guide was then placed flush against the lateral cortex of the femur. A 40 mm x 5 mm set screw was then placed. It was of appropriate length. Fluoroscopy was utilized to ensure its proper placement. At this point, no further work was deemed necessary. The final fluoroscopic images were taken. The gamma nail was appropriately placed within the medullary canal. The hip screw was placed through the nail and deep into the center of the femoral head on both AP and lateral views. The tip-apex distance was appropriate. The distal interlocking screw was through the nail and was of appropriate length. At this point in time, no further work was deemed necessary. The jig was removed. All of the wounds were thoroughly irrigated with sterile saline solution with antibiotic added via pulse lavage. The tensor fascia was closed with 0-Vicryl interrupted suture. The subcutaneous tissue closed with 2-0 Vicryl interrupted suture and the subcuticular layer was closed with stainless steel anand. Sterile dressings were applied. All sponge and needle counts were deemed correct prior to closure. The patient tolerated the procedure without apparent complication. He was transferred to recovery room in stable condition. MMODL / IJN: [id number] /
[2025-04-29] MEDS: ceFAZolin 2 GM in DEXTROSE 5% IN WATER 50 ML IVPB SCH (15:25)
--- NOTE | 2025-04-29 18:22 | P.PN ---
Progress Note - Text Progress Note Date: 04/29/25 - Chief Complaint Fall - History of Present Illness Very pleasant 65-year-old patient follows Dr. Stevens. Chronic medical conditions include hyperlipidemia, essential hypertension, osteoarthritis, BPH. Patient had arrhythmia and is worn a monitor in the past. No particular outcome. Has varicose veins. Patient is extremely active and does 3000 yards of swimming every day. Patient after coming out of the pool of [facility] today was wearing his fence. The floor was wet. He slipped and fell. Hitting the right side. Patient is in an acute ID fracture of the right proximal femur. Mild displacement. Pain is well-controlled at rest. Patient denies any other cardiac history. No cardiac symptoms otherwise. April 29: Status post surgery right hip. Some pain is present. Did tolerate breakfast. present. No nausea vomiting. Questions answered Active Medications Acetaminophen (Acetaminophen Tab 325 Mg Tab) 650 mg PO Q4HR PRN PRN Reason: Pain Scale 1 to 3 Hydrocodone Bitart/Acetaminophen (Hydrocodone/Apap 7.5-325mg 1 Each Tab) 1 each PO Q6HR PRN PRN Reason: Pain 4-6 Last Admin: 04/29/25 00:24 Dose: 1 each Hydrocodone Bitart/Acetaminophen (Hydrocodone/Apap 7.5-325mg 1 Each Tab) 2 each PO Q6HR PRN PRN Reason: Pain 7-10 Amlodipine Besylate (Amlodipine 5 Mg Tab) 5 mg PO [facility] Last Admin: 04/28/25 21:02 Dose: 5 mg Aspirin (Aspirin 81 Mg) 81 mg PO BID [facility] Bisacodyl (Bisacodyl 10 Mg Supp) 10 mg RECTAL DAILY PRN PRN Reason: Constipation Enoxaparin Sodium (Enoxaparin 40 Mg/0.4 Ml Syringe) 40 mg SQ DAILY [facility] Last Admin: 04/29/25 08:50 Dose: Not Given Hydromorphone HCl (Hydromorphone 1 Mg/Ml 1 Ml Syringe) 1 mg IVP Q3HR PRN PRN Reason: Severe Pain (Scale 7 to 10) Last Admin: 04/28/25 21:02 Dose: 1 mg Hydromorphone HCl (Hydromorphone 0.5 Mg/0.5 Ml Syringe) 0.125 mg IVP Q3HR PRN PRN Reason: Pain Scale 1 to 3 Hydromorphone HCl (Hydromorphone 0.5 Mg/0.5 Ml Syringe) 0.5 mg IVP Q3HR PRN PRN Reason: Pain Scale 7 to 10 Last Admin: 04/29/25 11:38 Dose: 0.5 mg Hydromorphone HCl (Hydromorphone 0.5 Mg/0.5 Ml Syringe) 0.25 mg IVP Q3HR PRN PRN Reason: Pain Scale 4 to 6 Sodium Chloride (Saline 0.9%) 1,000 mls @ 100 mls/hr IV .Q10H [facility] Last Admin: 04/29/25 15:24 Dose: 100 mls/hr Cefazolin Sodium 2 gm/ (Dextrose/Water) 50 mls @ 100 mls/hr IVPB Q8HR [facility]; Protocol Stop: 04/30/25 00:29 Last Admin: 04/29/25 15:25 Dose: 100 mls/hr Ketorolac Tromethamine (Ketorolac 15 Mg/Ml 1 Ml Vial) 15 mg IVP Q6HR PRN PRN Reason: Moderate Pain (Scale 4 to 6) Stop: 05/01/25 11:51 Lisinopril (Lisinopril 20 Mg Tab) 20 mg PO HS [facility] Last Admin: 04/28/25 21:02 Dose: 20 mg Magnesium Hydroxide (Magnesium Hydroxide 2,400 Mg/30 Ml Cup) 2,400 mg PO DAILY PRN PRN Reason: Constipation Multivitamins (Multivitamins, Thera 1 Each Tab) 1 each PO DAILY@1200 FLAVIA Naloxone HCl (Naloxone 0.4 Mg/Ml 1 Ml Vial) 0.2 mg IV Q2M PRN PRN Reason: Opioid Reversal Ondansetron HCl (Ondansetron 4 Mg/2 Ml Vial) 4 mg IVP Q8HR PRN PRN Reason: Nausea And Vomiting Senna/Docusate Sodium (Sennosides-Docusate Sodium 1 Each Tab) 2 each PO HS [facility] Sodium Biphosphate/Sodium Phosphate (Na Phos,M-B/Na Phos,Di-Ba 133 Ml Enema) 133 ml RECTAL DAILY PRN PRN Reason: Constipation Tramadol HCl (Tramadol 50 Mg Tab) 50 mg PO Q6HR PRN PRN Reason: Pain Scale 1 to 3 Social history: No smoking. Alcohol occasionally. 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 Conjunctiva saúl l. HEENT: External appearance of nose and ears normal, oral cavity grossly normal. NECK: JVD not raised; masses not palpable. HEART: First and second heart sounds are normal; no edema. LUNGS: Respiratory rate normal; clear to auscultation. ABDOMEN: Soft, nontender, liver spleen not palpable, no masses palpable. PSYCH: Alert and oriented x3; mood and affect saúl l. MUSCULOSKELETAL:No Clubbing/cyanosis;muscles-grossly intact. OA. I dressing over the incision over right hip INVESTIGATIONS, reviewed in the clinical context: April 29: White count 9.6 hemoglobin 14.2 platelets 214 potassium 3.9 creatinine 0.8 April 28, 2025: White count 13.4 hemoglobin 14.1 platelets 232 potassium 4 creatinine 0.73 EKG tracing personally reviewed by me-sinus rhythm. Heart rate 57 Chest x-ray film personally reviewed by me-unremarkable Right hip x-ray: Right proximal femur IT fracture Assessment plan: - Acute right proximal IT fracture secondary to fall. Mechanical Right IM hip screw fixation by Dr. Yap on April 29, 2025 Pain medications. Aspirin for DVT prophylaxis - Essential hypertension Amlodipine lisinopril - BPH Does not take any medications. - Primary osteoarthritis Tylenol as needed - Full code Discussed with patient . Activity as per Ortho Thank you Dr. Yap Past Medical History Past Medical History: Eye Disorder, Hyperlipidemia, Hypertension, Osteoarthritis (OA), Prostate Disorder Additional Past Medical History / Comment(s): HX MURMUR. OCC HEART HAS "SKIPPED BEAT." LT EYE LID SURG PLANNED D/T TEAR DUCT ISSUE. BORDERLINE ELEV CHOLESTEROL. SL BPH. VARICOSE VEINS. History of Any Multi-Drug Resistant Organisms: None Reported Past Surgical History: Orthopedic Surgery Additional Past Surgical History / Comment(s): JAW SURGERY, HAS WIRES. EXC RT CATARACT. RT ELBOW, RT SHOULDER SURG - REMOVED CLAVICLE; LT KNEE SCOPE. Past Anesthesia/Blood Transfusion Reactions: Motion Sickness Additional Past Anesthesia/Blood Transfusion Reaction / Comm: SOME CONFUSION WHEN AWAKENING Past Psychological History: No Psychological Hx Reported Past Alcohol Use History: Occasional Past Drug Use History: None Reported
[2025-04-29] MEDS: TAMSULOSIN 0.4 MG CAP.ER.24H PO SCH (18:57)
[2025-04-29] MEDS: ASPIRIN 81 MG PO SCH (22:07)
[2025-04-29] MEDS: SENNOSIDES-DOCUSATE SODIUM 1 EACH TAB PO SCH (22:10)
[2025-04-29] MEDS: ACETAMINOPHEN TAB 325 MG TAB PO PRN (22:10)
[2025-04-30] MEDS: MULTIVITAMINS, THERA 1 EACH TAB PO SCH (09:06)
[2025-04-30 09:22] LABS: Basophils # (A) 0.01 X 10*3/uL (0.00-0.10); Basophils % (A) 0.1 %; Eosinophils # (A) 0 X 10*3/uL (0.04-0.35); Eosinophils % (A) 0 %; HCT 36.6 % (39.6-50.0); HGB 11.8 g/dL (13.0-17.0); Lymphocytes # (A) 1.18 X 10*3/uL (0.90-5.00); Lymphocytes % (A) 10.7 %; MCH 32.5 pg (27.0-32.0); MCHC 32.2 g/dL (32.0-37.0); MCV 100.8 FL (80.0-97.0); Mean Platelet Volume 10.6 FL (9.5-12.2); Monocytes # (A) 1.31 X 10*3/uL (0.20-1.00); Monocytes % (A) 11.9 %; NRBC Per 100 WBC 0 X 10*3/uL (0.00-0.01); Neutrophils # (A) 8.46 X 10*3/uL (1.80-7.70); Neutrophils % (A) 76.9 %; Platelet Count 204 X 10*3/uL (140-440); RBC 3.63 X 10*6/uL (4.40-5.60); RDW 12.6 % (11.5-14.5)
--- NOTE | 2025-04-30 10:05 | P.PN ---
Progress Note - Text Progress Note Date: 04/30/25 - Chief Complaint Fall - History of Present Illness Very pleasant 65-year-old patient follows Dr. Stevens. Chronic medical conditions include hyperlipidemia, essential hypertension, osteoarthritis, BPH. Patient had arrhythmia and is worn a monitor in the past. No particular outcome. Has varicose veins. Patient is extremely active and does 3000 yards of swimming every day. Patient after coming out of the pool of the [facility] today was wearing his fence. The floor was wet. He slipped and fell. Hitting the right side. Patient is in an acute ID fracture of the right proximal femur. Mild displacement. Pain is well-controlled at rest. Patient denies any other cardiac history. No cardiac symptoms otherwise. April 29: Status post surgery right hip. Some pain is present. Did tolerate breakfast. present. No nausea vomiting. Questions answered April 30: Has not been out of bed. Believes only allowed toe-touch with the right leg. Some pain in the operative site with stiffness. No nausea vomiting. He tolerated diet. Anemia of blood loss. Give IV Ferrlecit. Oral iron. Patient had to have straight catheterization x 2 yesterday. Added on Flomax. Active Medications Acetaminophen (Acetaminophen Tab 325 Mg Tab) 650 mg PO Q4HR PRN PRN Reason: Pain Scale 1 to 3 Last Admin: 04/30/25 06:08 Dose: 650 mg Hydrocodone Bitart/Acetaminophen (Hydrocodone/Apap 7.5-325mg 1 Each Tab) 1 each PO Q6HR PRN PRN Reason: Pain 4-6 Last Admin: 04/29/25 00:24 Dose: 1 each Hydrocodone Bitart/Acetaminophen (Hydrocodone/Apap 7.5-325mg 1 Each Tab) 2 each PO Q6HR PRN PRN Reason: Pain 7-10 Amlodipine Besylate (Amlodipine 5 Mg Tab) 5 mg PO HS [facility] Last Admin: 04/29/25 22:07 Dose: 5 mg Aspirin (Aspirin 81 Mg) 81 mg PO BID [facility] Last Admin: 04/30/25 09:06 Dose: 81 mg Bisacodyl (Bisacodyl 10 Mg Supp) 10 mg RECTAL DAILY PRN PRN Reason: Constipation Enoxaparin Sodium (Enoxaparin 40 Mg/0.4 Ml Syringe) 40 mg SQ DAILY [facility] Last Admin: 04/30/25 09:05 Dose: 40 mg Hydromorphone HCl (Hydromorphone 1 Mg/Ml 1 Ml Syringe) 1 mg IVP Q3HR PRN PRN Reason: Severe Pain (Scale 7 to 10) Last Admin: 04/28/25 21:02 Dose: 1 mg Hydromorphone HCl (Hydromorphone 0.5 Mg/0.5 Ml Syringe) 0.125 mg IVP Q3HR PRN PRN Reason: Pain Scale 1 to 3 Hydromorphone HCl (Hydromorphone 0.5 Mg/0.5 Ml Syringe) 0.5 mg IVP Q3HR PRN PRN Reason: Pain Scale 7 to 10 Last Admin: 04/29/25 11:38 Dose: 0.5 mg Hydromorphone HCl (Hydromorphone 0.5 Mg/0.5 Ml Syringe) 0.25 mg IVP Q3HR PRN PRN Reason: Pain Scale 4 to 6 Sodium Chloride (Saline 0.9%) 1,000 mls @ 100 mls/hr IV .Q10H [facility] Last Admin: 04/30/25 06:07 Dose: Not Given Ketorolac Tromethamine (Ketorolac 15 Mg/Ml 1 Ml Vial) 15 mg IVP Q6HR PRN PRN Reason: Moderate Pain (Scale 4 to 6) Stop: 05/01/25 11:51 Lisinopril (Lisinopril 20 Mg Tab) 20 mg PO [facility] Last Admin: 04/29/25 22:07 Dose: 20 mg Magnesium Hydroxide (Magnesium Hydroxide 2,400 Mg/30 Ml Cup) 2,400 mg PO DAILY PRN PRN Reason: Constipation Multivitamins (Multivitamins, Thera 1 Each Tab) 1 each PO DAILY@1200 [facility] Last Admin: 04/30/25 09:06 Dose: 1 each Naloxone HCl (Naloxone 0.4 Mg/Ml 1 Ml Vial) 0.2 mg IV Q2M PRN PRN Reason: Opioid Reversal Ondansetron HCl (Ondansetron 4 Mg/2 Ml Vial) 4 mg IVP Q8HR PRN PRN Reason: Nausea And Vomiting Senna/Docusate Sodium (Sennosides-Docusate Sodium 1 Each Tab) 2 each PO [facility] Last Admin: 04/29/25 22:10 Dose: Not Given Sodium Biphosphate/Sodium Phosphate (Na Phos,M-B/Na Phos,Di-Ba 133 Ml Enema) 133 ml RECTAL DAILY PRN PRN Reason: Constipation Tamsulosin HCl (Tamsulosin 0.4 Mg Cap.Er.24h) 0.4 mg PO AC-SUPPER [facility] Last Admin: 04/29/25 18:57 Dose: 0.4 mg Tramadol HCl (Tramadol 50 Mg Tab) 50 mg PO Q6HR PRN PRN Reason: Pain Scale 1 to 3 Social history: No smoking. Alcohol occasionally. 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 Lives with his Physical examination: VITAL SIGNS: 97.8, 57, 18, 115 x 62, 94% room air GENERAL: BMI 26.1, reclining in bed EYES: Pupils equal. Conjunctiva saúl l. HEENT: External appearance of nose and ears normal, oral cavity grossly normal. NECK: JVD not raised; masses not palpable. HEART: First and second heart sounds are normal; no edema. LUNGS: Respiratory rate normal; clear to auscultation. ABDOMEN: Soft, nontender, liver spleen not palpable, no masses palpable. PSYCH: Alert and oriented x3; mood and affect saúl l. MUSCULOSKELETAL:No Clubbing/cyanosis;muscles-grossly intact. OA. I dressing over the incision over right hip INVESTIGATIONS, reviewed in the clinical context: April 30: White count 11 hemoglobin 11.8 April 29: White count 9.6 hemoglobin 14.2 platelets 214 potassium 3.9 creatinine 0.8 April 28, 2025: White count 13.4 hemoglobin 14.1 platelets 232 potassium 4 creatinine 0.73 EKG tracing personally reviewed by me-sinus rhythm. Heart rate 57 Chest x-ray film personally reviewed by me-unremarkable Right hip x-ray: Right proximal femur IT fracture Assessment plan: - Acute right proximal IT fracture secondary to fall. Mechanical Right IM hip screw fixation by Dr. Yap on April 29, 2025 Pain medications. Aspirin for DVT prophylaxis Right leg toe-touch - Acute postprocedure blood loss anemia expected from surgery IV Ferrlecit. Oral ferrous sulfate - Essential hypertension Amlodipine lisinopril - BPH, with outflow obstruction. Required straight catheterization x 2 Flomax 0.4 mg nightly. - Primary osteoarthritis Tylenol as needed - Full code Discussed. IV Ferrlecit. On Flomax. Thank you Dr. Yap Past Medical History Past Medical History: Eye Disorder, Hyperlipidemia, Hypertension, Osteoarthritis (OA), Prostate Disorder Additional Past Medical History / Comment(s): HX MURMUR. OCC HEART HAS "SKIPPED BEAT." LT EYE LID SURG PLANNED D/T TEAR DUCT ISSUE. BORDERLINE ELEV CHOLESTEROL. SL BPH. VARICOSE VEINS. History of Any Multi-Drug Resistant Organisms: None Reported Past Surgical History: Orthopedic Surgery Additional Past Surgical History / Comment(s): JAW SURGERY, HAS WIRES. EXC RT CATARACT. RT ELBOW, RT SHOULDER SURG - REMOVED CLAVICLE; LT KNEE SCOPE. Past Anesthesia/Blood Transfusion Reactions: Motion Sickness Additional Past Anesthesia/Blood Transfusion Reaction / Comm: SOME CONFUSION WHEN AWAKENING Past Psychological History: No Psychological Hx Reported Past Alcohol Use History: Occasional Past Drug Use History: None Reported
[2025-04-30] MEDS: SODIUM FERRIC GLUCONAT-SUCROSE 125 MG in SODIUM CHLORIDE 0.9% 100 ML IVPB SCH (11:29)
[2025-04-30] MEDS: FERROUS SULFATE 325 MG TAB PO SCH (11:43)
--- NOTE | 2025-04-30 16:43 | P.ANPRN ---
Procedure Note - Anesthesia - Nerve Block Performed Right Arsenio Single Time Out Performed: Yes Date of Procedure: 04/29/25 Procedure Start Time: Procedure Stop Time: : Location of Patient: PreOp Indication: Acute Post-Operative Pain, Requested by Surgeon Sedation Type: Sedate with meaningful contact maintained Preparation: Sterile Prep Position: Supine Needle Types: Pajunk Needle Gauge: 21 Ultrasound used to visualize needle placement: Yes Ultrasound used to observe medication spread: Yes Blood Aspirated: No Pain Paresthesia on Injection Noted: No Resistance on Injection: Normal Image Stored and Saved: Yes Events: Uneventful and Well Tolerated (Ropivacaine 0.5% 20 cc plus dexamethasone 4 mg)
[2025-05-01] MEDS: ONDANSETRON 4 MG/2 ML VIAL IVP PRN (09:57)
--- NOTE | 2025-05-01 11:06 | P.PN ---
Subjective Progress Note Date: 04/30/25 Principal diagnosis: Right IT fracture Patient is seen at bedside this morning. He is postop day #1 from gamma nail for right IT fracture. He has pain at the surgical site as expected but denies any new complaints. He denies numbness, tingling or calf pain. Review of systems is negative for fever, chills, chest pain, shortness of breath or other Objective - Vital Signs Vital signs: Vital Signs Temp 97.9 F 04/30/25 14:00 Pulse 84 04/30/25 14:00 Resp 17 04/30/25 14:00 BP 130/61 04/30/25 14:00 Pulse Ox 99 04/30/25 14:00 FiO2 Intake & Output 04/29/25 04/30/25 04/30/25 18:59 06:59 18:59 Intake Total 1300 2160 Output Total 975 1675 675 Balance 325 485 -675 Intake: IV 1300 Oral 2160 Output: Urine 950 1675 675 Straight 950 900 Estimated Blood Loss 25 Other: Voiding Method Urinal Urinal Urinal # Voids 4 - Exam Inspection reveals a benign surgical wound. There is no active bleeding or drainage. Neurovascular status is intact throughout the lower extremity with motor and sensation fully intact. Calf is soft and nontender. 2+ dorsalis pedis pulse and less than 2 second cap refill is present. - Constitutional General appearance: Present: no acute distress - Labs CBC & Chem 7: 04/30/25 03:33 04/29/25 05:39 Labs: Abnormal Lab Results - Last 24 Hours (Table) 04/30/25 Range/Units 03:33 WBC 11.00 H (4.50-10.00) X 10*3/uL RBC 3.63 L (4.40-5.60) X 10*6/uL Hgb 11.8 L (13.0-17.0) g/dL Hct 36.6 L (39.6-50.0) % MCV 100.8 H (80.0-97.0) FL MCH 32.5 H (27.0-32.0) pg Neutrophils # 8.46 H (1.80-7.70) X 10*3/uL Monocytes # 1.31 H (0.20-1.00) X 10*3/uL Eosinophils # 0 L (0.04-0.35) X 10*3/uL Assessment and Plan (1) Intertrochanteric fracture of right hip Narrative/Plan: He will continue with routine postop orthopedic protocol including pain management, wound care, PT, DVT prophylaxis and medical management. Expect that he will transfer to home in next 1-2 days Current Visit: Yes Status: Acute Code(s): S72.141A - DISPLACED INTERTROCHANTERIC FRACTURE OF RIGHT FEMUR, INIT SNOMED Code(s): 273146826 Time with Patient: Less than 30
--- NOTE | 2025-05-01 16:44 | P.PN ---
Subjective Progress Note Date: 05/01/25 Principal diagnosis: Right IT fracture Patient is seen at bedside this morning. He is postop day #2 from gamma nail for right IT fracture. He has pain at the surgical site as expected but denies any new complaints. He denies numbness, tingling or calf pain. Review of systems is negative for fever, chills, chest pain, shortness of breath or other Objective - Vital Signs Vital signs: Vital Signs Temp 99.6 F 05/01/25 13:20 Pulse 62 05/01/25 13:20 Resp 18 05/01/25 13:20 BP 96/60 05/01/25 13:20 Pulse Ox 97 05/01/25 13:20 FiO2 Intake & Output 04/30/25 05/01/25 05/01/25 18:59 06:59 18:59 Intake Total 3240 Output Total 675 3075 1139 Balance -675 165 -1139 Intake: Oral 3240 Output: Urine 675 3075 800 Post Void Residual 339 Other: Voiding Method Urinal Urinal Urinal # Voids 3 1 - Exam Inspection reveals a benign surgical wound. There is no active bleeding or drainage. Neurovascular status is intact throughout the lower extremity with motor and sensation fully intact. Calf is soft and nontender. 2+ dorsalis pedis pulse and less than 2 second cap refill is present. - Constitutional General appearance: Present: no acute distress - Labs CBC & Chem 7: 04/30/25 03:33 04/29/25 05:39 Assessment and Plan (1) Intertrochanteric fracture of right hip Narrative/Plan: He will continue with routine postop orthopedic protocol including pain management, wound care, PT, DVT prophylaxis and medical management. Expect that he will transfer to home in next 1-2 days Current Visit: Yes Status: Acute Priority: Medium Code(s): S72.141A - DISPLACED INTERTROCHANTERIC FRACTURE OF RIGHT FEMUR, INIT SNOMED Code(s): 786718655 Time with Patient: Less than 30
--- NOTE | 2025-05-01 18:10 | P.PN ---
Progress Note - Text Progress Note Date: 05/01/25 - Chief Complaint Fall - History of Present Illness Very pleasant 65-year-old patient follows Dr. Stevens. Chronic medical conditions include hyperlipidemia, essential hypertension, osteoarthritis, BPH. Patient had arrhythmia and is worn a monitor in the past. No particular outcome. Has varicose veins. Patient is extremely active and does 3000 yards of swimming every day. Patient after coming out of the pool of the [facility] today was wearing his fence. The floor was wet. He slipped and fell. Hitting the right side. Patient is in an acute ID fracture of the right proximal femur. Mild displacement. Pain is well-controlled at rest. Patient denies any other cardiac history. No cardiac symptoms otherwise. April 29: Status post surgery right hip. Some pain is present. Did tolerate breakfast. present. No nausea vomiting. Questions answered April 30: Has not been out of bed. Believes only allowed toe-touch with the right leg. Some pain in the operative site with stiffness. No nausea vomiting. He tolerated diet. Anemia of blood loss. Give IV Ferrlecit. Oral iron. Patient had to have straight catheterization x 2 yesterday. Added on Flomax. May 01: Patient up in a recliner. Using walker. Limited weightbearing on the right leg. Pain present. Did have slight lightheaded and nausea this morning. Scheduled. Tolerating diet. Getting IV Ferrlecit for blood loss anemia. Discussed with patient . Hopefully can be discharged home tomorrow per Ortho. Active Medications Acetaminophen (Acetaminophen Tab 325 Mg Tab) 650 mg PO Q4HR PRN PRN Reason: Pain Scale 1 to 3 Last Admin: 05/01/25 13:25 Dose: 650 mg Hydrocodone Bitart/Acetaminophen (Hydrocodone/Apap 7.5-325mg 1 Each Tab) 1 each PO Q6HR PRN PRN Reason: Pain 4-6 Last Admin: 05/01/25 07:51 Dose: 1 each Hydrocodone Bitart/Acetaminophen (Hydrocodone/Apap 7.5-325mg 1 Each Tab) 2 each PO Q6HR PRN PRN Reason: Pain 7-10 Amlodipine Besylate (Amlodipine 5 Mg Tab) 5 mg PO [facility] Last Admin: 04/30/25 20:36 Dose: 5 mg Aspirin (Aspirin 81 Mg) 81 mg PO BID [facility] Last Admin: 05/01/25 07:50 Dose: 81 mg Bisacodyl (Bisacodyl 10 Mg Supp) 10 mg RECTAL DAILY PRN PRN Reason: Constipation Enoxaparin Sodium (Enoxaparin 40 Mg/0.4 Ml Syringe) 40 mg SQ DAILY [facility] Last Admin: 05/01/25 07:50 Dose: 40 mg Ferrous Sulfate (Ferrous Sulfate 325 Mg Tab) 325 mg PO W/LUNCH [facility] Last Admin: 05/01/25 12:37 Dose: 325 mg Hydromorphone HCl (Hydromorphone 1 Mg/Ml 1 Ml Syringe) 1 mg IVP Q3HR PRN PRN Reason: Severe Pain (Scale 7 to 10) Last Admin: 04/28/25 21:02 Dose: 1 mg Hydromorphone HCl (Hydromorphone 0.5 Mg/0.5 Ml Syringe) 0.125 mg IVP Q3HR PRN PRN Reason: Pain Scale 1 to 3 Hydromorphone HCl (Hydromorphone 0.5 Mg/0.5 Ml Syringe) 0.5 mg IVP Q3HR PRN PRN Reason: Pain Scale 7 to 10 Last Admin: 04/29/25 11:38 Dose: 0.5 mg Hydromorphone HCl (Hydromorphone 0.5 Mg/0.5 Ml Syringe) 0.25 mg IVP Q3HR PRN PRN Reason: Pain Scale 4 to 6 Sodium Chloride (Saline 0.9%) 1,000 mls @ 100 mls/hr IV .Q10H [facility] Last Admin: 05/01/25 09:18 Dose: Not Given Lisinopril (Lisinopril 20 Mg Tab) 20 mg PO HS [facility] Last Admin: 04/30/25 20:36 Dose: 20 mg Magnesium Hydroxide (Magnesium Hydroxide 2,400 Mg/30 Ml Cup) 2,400 mg PO DAILY PRN PRN Reason: Constipation Multivitamins (Multivitamins, Thera 1 Each Tab) 1 each PO DAILY@1200 [facility] Last Admin: 05/01/25 12:37 Dose: 1 each Naloxone HCl (Naloxone 0.4 Mg/Ml 1 Ml Vial) 0.2 mg IV Q2M PRN PRN Reason: Opioid Reversal Ondansetron HCl (Ondansetron 4 Mg/2 Ml Vial) 4 mg IVP Q8HR PRN PRN Reason: Nausea And Vomiting Last Admin: 05/01/25 09:57 Dose: 4 mg Senna/Docusate Sodium (Sennosides-Docusate Sodium 1 Each Tab) 2 each PO HS [facility] Last Admin: 04/30/25 20:36 Dose: 2 each Sodium Biphosphate/Sodium Phosphate (Na Phos,M-B/Na Phos,Di-Ba 133 Ml Enema) 133 ml RECTAL DAILY PRN PRN Reason: Constipation Tamsulosin HCl (Tamsulosin 0.4 Mg Cap.Er.24h) 0.4 mg PO AC-SUPPER [facility] Last Admin: 05/01/25 17:07 Dose: 0.4 mg Tramadol HCl (Tramadol 50 Mg Tab) 50 mg PO Q6HR PRN PRN Reason: Pain Scale 1 to 3 Social history: No smoking. Alcohol occasionally. 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 Lives with his Physical examination: VITAL SIGNS: 98, 57, 18, 161 x 70, 97% room air GENERAL: BMI 26.1, up in a recliner EYES: Pupils equal. Conjunctiva saúl l. HEENT: External appearance of nose and ears normal, oral cavity grossly normal. NECK: JVD not raised; masses not palpable. HEART: First and second heart sounds are normal; no edema. LUNGS: Respiratory rate normal; clear to auscultation. ABDOMEN: Soft, nontender, liver spleen not palpable, no masses palpable. PSYCH: Alert and oriented x3; mood and affect saúl l. MUSCULOSKELETAL:No Clubbing/cyanosis;muscles-grossly intact. OA. I dressing over the incision over right hip INVESTIGATIONS, reviewed in the clinical context: April 30: White count 11 hemoglobin 11.8 April 29: White count 9.6 hemoglobin 14.2 platelets 214 potassium 3.9 creatinine 0.8 April 28, 2025: White count 13.4 hemoglobin 14.1 platelets 232 potassium 4 creatinine 0.73 EKG tracing personally reviewed by me-sinus rhythm. Heart rate 57 Chest x-ray film personally reviewed by me-unremarkable Right hip x-ray: Right proximal femur IT fracture Assessment plan: - Acute right proximal IT fracture secondary to fall. Mechanical Right IM hip screw fixation by Dr. Yap on April 29, 2025 Pain medications. Aspirin for DVT prophylaxis Right leg toe-touch - Acute postprocedure blood loss anemia expected from surgery IV Ferrlecit-second dose today. Oral ferrous sulfate - Essential hypertension Amlodipine lisinopril - BPH, with outflow obstruction. Required straight catheterization x 2 Flomax 0.4 mg nightly. - Primary osteoarthritis Tylenol as needed - Full code Discussed. Thank you Dr. Yap Past Medical History Past Medical History: Eye Disorder, Hyperlipidemia, Hypertension, Osteoarthritis (OA), Prostate Disorder Additional Past Medical History / Comment(s): HX MURMUR. OCC HEART HAS "SKIPPED BEAT." LT EYE LID SURG PLANNED D/T TEAR DUCT ISSUE. BORDERLINE ELEV CHOLESTEROL. SL BPH. VARICOSE VEINS. History of Any Multi-Drug Resistant Organisms: None Reported Past Surgical History: Orthopedic Surgery Additional Past Surgical History / Comment(s): JAW SURGERY, HAS WIRES. EXC RT CATARACT. RT ELBOW, RT SHOULDER SURG - REMOVED CLAVICLE; LT KNEE SCOPE. Past Anesthesia/Blood Transfusion Reactions: Motion Sickness Additional Past Anesthesia/Blood Transfusion Reaction / Comm: SOME CONFUSION WHEN AWAKENING Past Psychological History: No Psychological Hx Reported Past Alcohol Use History: Occasional Past Drug Use History: None Reported
[2025-05-02 08:01] LABS: Basophils # (A) 0.02 X 10*3/uL (0.00-0.10); Basophils % (A) 0.3 %; Eosinophils # (A) 0.19 X 10*3/uL (0.04-0.35); Eosinophils % (A) 2.6 %; HCT 34.1 % (39.6-50.0); HGB 11.3 g/dL (13.0-17.0); Lymphocytes # (A) 1.18 X 10*3/uL (0.90-5.00); Lymphocytes % (A) 15.8 %; MCH 32.9 pg (27.0-32.0); MCHC 33.1 g/dL (32.0-37.0); MCV 99.4 FL (80.0-97.0); Mean Platelet Volume 11.2 FL (9.5-12.2); Monocytes # (A) 0.88 X 10*3/uL (0.20-1.00); Monocytes % (A) 11.8 %; NRBC Per 100 WBC 0 X 10*3/uL (0.00-0.01); Neutrophils # (A) 5.16 X 10*3/uL (1.80-7.70); Neutrophils % (A) 69.2 %; Platelet Count 206 X 10*3/uL (140-440); RBC 3.43 X 10*6/uL (4.40-5.60); RDW 12.4 % (11.5-14.5); WBC 7.45 X 10*3/uL (4.50-10.00)
[2025-05-02 08:56] VITALS: BP 103/54; PULSE 63; RESP 17; TEMP 98.4
[2025-05-02] MEDS: MAGNESIUM HYDROXIDE 2,400 MG/30 ML CUP PO PRN (09:06)
--- NOTE | 2025-05-02 11:41 | P.DS ---
Providers Date of admission: 04/28/25 11:48 Expected date of discharge: 05/02/25 Attending physician: Todd Yap Consults: 04/28/25 11:48 Consult Physician Routine Consulting Provider: Cayetano Castro Consult Reason/Comments: medical management Do you want consulting provider notified?: Yes Primary care physician: Giancarlo Stevens - Discharge Diagnosis(es) (1) Intertrochanteric fracture of right hip Patient was admitted to the OR on 04/29/25 to undergo a left total knee arthroplasty. He had suffered a fall resulting in a right IT hip fracture. He desired to proceed with elective surgery after given informed consent. He underwent the above procedure which he tolerated well without complication. Postoperative hospital course has remained without complication. On day of discharge he is afebrile, vital signs stable, labs within acceptable ranges, tolerating by mouth meds and diet, voiding without difficulty, positive flatus, denies abdominal pain or calf pain, pain is controlled on oral pain medication and has no new complaints. Wound is benign, neurovascular status is intact, calf is soft and nontender, abdomen soft and nontender. Review of systems is negative for numbness, tingling, fever, chills, chest pain, shortness of breath, nausea, vomiting, dizziness, headaches, slurred speech or other. Current Visit: Yes Status: Acute Priority: Medium Procedures: Gamma nail right IT Patient Condition at Discharge: Good Plan - Discharge Summary Discharge Rx Participant: Yes New Discharge Prescriptions: New Tamsulosin [Flomax] 0.4 mg PO AC-SUPPER #30 cap Aspirin [Adult Low Dose Aspirin EC] 81 mg PO BID #60 tab Docusate [Colace] 100 mg PO BID #60 capsule HYDROcodone/APAP 5-325MG [[place] 5-325] 1 - 2 tab PO Q4HR PRN #28 tab PRN Reason: Pain Ondansetron [Zofran] 4 mg PO Q8HR PRN #21 tab PRN Reason: Nausea Ferrous Sulfate [Iron (65 MG Elemental)] 325 mg PO W/LUNCH #30 tab Continue amLODIPine BESYLATE/BENAZEPRIL [amLODIPine BESYLATE/BENAZEPRIL 5-20 MG] 1 cap PO HS Discharge Medication List amLODIPine BESYLATE/BENAZEPRIL [amLODIPine BESYLATE/BENAZEPRIL 5-20 MG] 1 cap PO HS 01/21/19 [History] Aspirin [Adult Low Dose Aspirin EC] 81 mg PO BID #60 tab 05/02/25 [Rx] Docusate [Colace] 100 mg PO BID #60 capsule 05/02/25 [Rx] Ferrous Sulfate [Iron (65 MG Elemental)] 325 mg PO W/LUNCH #30 tab 05/02/25 [Rx] HYDROcodone/APAP 5-325MG [[place] 5-325] 1 - 2 tab PO Q4HR PRN #28 tab 05/02/25 [Rx] Ondansetron [Zofran] 4 mg PO Q8HR PRN #21 tab 05/02/25 [Rx] Tamsulosin [Flomax] 0.4 mg PO AC-SUPPER #30 cap 05/02/25 [Rx] Follow up Appointment(s)/Referral(s): Giancarlo Stevens DO [Primary Care Provider] - 1-2 days Raffi Gunn MD [STAFF PHYSICIAN] - 2 Weeks [facility], [NON-STAFF] - 1-2 Days ([facility] will call you to schedule your in home physical therapy visits. ) Todd Yap MD [STAFF PHYSICIAN] - 10 Days Activity/Diet/Wound Care/Special Instructions: keep wound clean and dry take meds as directed f/u in office 50% weightbearing Discharge Disposition: HOME WITH HOME HEALTH SERVICES
--- NOTE | 2025-05-02 15:30 | P.PN ---
Progress Note - Text Progress Note Date: 05/02/25 - Chief Complaint Fall - History of Present Illness Very pleasant 65-year-old patient follows Dr. Stevens. Chronic medical conditions include hyperlipidemia, essential hypertension, osteoarthritis, BPH. Patient had arrhythmia and is worn a monitor in the past. No particular outcome. Has varicose veins. Patient is extremely active and does 3000 yards of swimming every day. Patient after coming out of the pool of the biopsy today was wearing his fence. The floor was wet. He slipped and fell. Hitting the right side. Patient is in an acute ID fracture of the right proximal femur. Mild displacement. Pain is well-controlled at rest. Patient denies any other cardiac history. No cardiac symptoms otherwise. April 29: Status post surgery right hip. Some pain is present. Did tolerate breakfast. present. No nausea vomiting. Questions answered April 30: Has not been out of bed. Believes only allowed toe-touch with the right leg. Some pain in the operative site with stiffness. No nausea vomiting. He tolerated diet. Anemia of blood loss. Give IV Ferrlecit. Oral iron. Patient had to have straight catheterization x 2 yesterday. Added on Flomax. May 01: Patient up in a recliner. Using walker. Limited weightbearing on the right leg. Pain present. Did have slight lightheaded and nausea this morning. Scheduled. Tolerating diet. Getting IV Ferrlecit for blood loss anemia. Discussed with patient . Hopefully can be discharged home tomorrow per Ortho. May 02: Patient's partially right leg pinning per Ortho now. Pain better. Eating fair. Iron supplement. Discussed. Follow-up with PCP upon discharge. Making urine better Social history: No smoking. Alcohol occasionally. 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 Lives with his Physical examination: VITAL SIGNS: 98.4, 63, 17, 103 x 54, 96% room air GENERAL: BMI 26.1, up in chair EYES: Pupils equal. Conjunctiva saúl l. HEENT: External appearance of nose and ears normal, oral cavity grossly normal. NECK: JVD not raised; masses not palpable. HEART: First and second heart sounds are normal; no edema. LUNGS: Respiratory rate normal; clear to auscultation. ABDOMEN: Soft, nontender, liver spleen not palpable, no masses palpable. PSYCH: Alert and oriented x3; mood and affect saúl l. MUSCULOSKELETAL:No Clubbing/cyanosis;muscles-grossly intact. OA. I dressing over the incision over right hip INVESTIGATIONS, reviewed in the clinical context: May 02: White count 7.4 hemoglobin 11.3 platelets 206 April 28, 2025: White count 13.4 hemoglobin 14.1 platelets 232 potassium 4 creatinine 0.73 EKG tracing personally reviewed by me-sinus rhythm. Heart rate 57 Chest x-ray film personally reviewed by me-unremarkable Right hip x-ray: Right proximal femur IT fracture Assessment plan: - Acute right proximal IT fracture secondary to fall. Mechanical Right IM hip screw fixation by Dr. Yap on April 29, 2025 Pain medications. Aspirin for DVT prophylaxis Right leg toe-touch - Acute postprocedure blood loss anemia expected from surgery IV Ferrlecit-received 2 doses. Oral ferrous sulfate - Essential hypertension Amlodipine lisinopril - BPH, with outflow obstruction.: Now making urine Required straight catheterization x 2 Flomax 0.4 mg nightly. Follow-up with Dr. Gunn outpatient - Primary osteoarthritis Tylenol as needed - Full code Follow-up with Dr. Stevens upon discharge Thank you Dr. Yap Past Medical History Past Medical History: Eye Disorder, Hyperlipidemia, Hypertension, Osteoarthritis (OA), Prostate Disorder Additional Past Medical History / Comment(s): HX MURMUR. OCC HEART HAS "SKIPPED BEAT." LT EYE LID SURG PLANNED D/T TEAR DUCT ISSUE. BORDERLINE ELEV CHOLESTEROL. SL BPH. VARICOSE VEINS. History of Any Multi-Drug Resistant Organisms: None Reported Past Surgical History: Orthopedic Surgery Additional Past Surgical History / Comment(s): JAW SURGERY, HAS WIRES. EXC RT CATARACT. RT ELBOW, RT SHOULDER SURG - REMOVED CLAVICLE; LT KNEE SCOPE. Past Anesthesia/Blood Transfusion Reactions: Motion Sickness Additional Past Anesthesia/Blood Transfusion Reaction / Comm: SOME CONFUSION WHEN AWAKENING Past Psychological History: No Psychological Hx Reported Past Alcohol Use History: Occasional Past Drug Use History: None Reported
== END 2025-05-02 13:15 | disposition home health service (06) | DRG 482 ==
LOC: EC 07:38 → 4SSUR 11:48
PROVIDERS: ADMIT Orthopaedic Surgery Sports Medicine; ATTEND Orthopaedic Surgery Sports Medicine
PROC: 0QS636Z Reposition Right Upper Femur with Intramedullary Internal Fixation Device, Percutaneous Approach (ICD-10-PCS; principal; 2025-04-29 09:05)
DX: S72.141A Displaced intertrochanteric fracture of right femur, initial encounter for closed fracture (principal); D50.0 Iron deficiency anemia secondary to blood loss (chronic); I10 Essential (primary) hypertension; E78.5 Hyperlipidemia, unspecified; I83.90 Asymptomatic varicose veins of unspecified lower extremity; S50.311A Abrasion of right elbow, initial encounter; W01.0XXA Fall on same level from slipping, tripping and stumbling without subsequent striking against object, initial encounter; M19.91 Primary osteoarthritis, unspecified site; N40.0 Benign prostatic hyperplasia without lower urinary tract symptoms; Z79.82 Long term (current) use of aspirin; Z79.899 Other long term (current) drug therapy; Y93.11 Activity, swimming; Y92.838 Other recreation area as the place of occurrence of the external cause
CPT/HCPCS: 36415; 64473; 71045; 73502; 80053; 85025; 85610; 85730; 86850; 86900; 86901; 93005; 96361; 96374; 96375; 96376; 99285

== ENCOUNTER → 2025-05-03 | Outpatient (CLI) | payer MEDICARE, OTHER ==
--- NOTE | 2025-05-03 17:44 | US ---
EXAMINATION TYPE: US venous doppler duplex UE LT DATE OF EXAM: 05/03/2025 COMPARISON: NONE CLINICAL INDICATION: Male, 65 years old with history of M79.89 OTHER SPECIFIED SOFT TISSUE DISORDERS; Left arm swelling where IV was placed, No hx of clot, currently taking baby aspirin TECHNIQUE: Grayscale, color Doppler and spectral Doppler imaging of the upper extremity. SIDE PERFORMED: Left VESSELS IMAGED: IJV Subclavian Vein Axilla Vein Brachial Vein(s) Radial Paired Veins Ulnar Paired Veins Cephalic Vein* Basilic Vein* (*superficial vessels) FINDINGS: Right Arm: Left Arm: Positive for thrombosis within Lower part of arm within the basilic V, pt AOC/ Area of swel ling, IV placement Grayscale, color doppler, spectral doppler imaging performed of the deep veins of the upper extremiti es. IMPRESSION: No definite evidence of deep vein thrombosis involving the left upper extremity. However, there is suresh th occlusive and partially occlusive thrombus involving the superficial basophilic and cephalic veins . [facility], , 05/03/2025 5:41 PM
== END | disposition home or self-care (01) ==
LOC: RADUSWWP 16:34
PROVIDERS: ATTEND Family Medicine
DX: M79.89 Other specified soft tissue disorders (principal)

== ENCOUNTER → 2025-05-04 | Outpatient (CLI) | payer MEDICARE, OTHER ==
[2025-05-04 15:10] LABS: HCT 36.7 % (39.6-50.0); HGB 11.9 g/dL (13.0-17.0); MCH 32.8 pg (27.0-32.0); MCHC 32.4 g/dL (32.0-37.0); MCV 101.1 FL (80.0-97.0); Mean Platelet Volume 10.3 FL (9.5-12.2); NRBC Per 100 WBC 0 X 10*3/uL (0.00-0.01); Platelet Count 295 X 10*3/uL (140-440); RBC 3.63 X 10*6/uL (4.40-5.60); RDW 12.3 % (11.5-14.5); WBC 8.92 X 10*3/uL (4.50-10.00)
[2025-05-04 15:11] LABS: Basophils # (A) 0.02 X 10*3/uL (0.00-0.10); Basophils % (A) 0.2 %; Eosinophils % (A) 1.1 %; Lymphocytes # (A) 1.41 X 10*3/uL (0.90-5.00); Lymphocytes % (A) 15.8 %; Monocytes # (A) 0.94 X 10*3/uL (0.20-1.00); Monocytes % (A) 10.5 %; Neutrophils # (A) 6.42 X 10*3/uL (1.80-7.70); Neutrophils % (A) 72.1 %
[2025-05-04 15:36] LABS: % Iron Saturation 15.16 (15.00-50.00); ALT 54 U/L (10-49); AST 52 U/L (14-35); Albumin 3.9 g/dL (3.8-4.9); Albumin/Globulin Ratio 1.44 Ratio (1.60-3.17); Alkaline Phosphatase 72 U/L (41-126); BUN/Creat Ratio 22.11 Ratio (12.00-20.00); Blood Urea Nitrogen 19.9 mg/dL (9.0-27.0); Calcium 9.7 mg/dL (8.7-10.3); Carbon Dioxide 24.9 mmol/L (21.6-31.8); Chloride 102 mmol/L (96-109); Globulin 2.7 g/dL (1.6-3.3); Glucose 125 mg/dL (70-110); Iron 37 UG/DL (65-175); Potassium 4.4 mmol/L (3.5-5.5); Sodium 138 mmol/L (135-145); Total Bilirubin 0.9 mg/dL (0.3-1.2); Total Iron Binding Capacity 244 UG/DL (228-460); Total Protein 6.6 g/dL (6.2-8.2)
== END | disposition home or self-care (01) ==
LOC: LABWHC1 09:04
PROVIDERS: ATTEND Family Medicine
DX: T82.7XXA Infection and inflammatory reaction due to other cardiac and vascular devices, implants and grafts, initial encounter (principal); D64.9 Anemia, unspecified
CPT/HCPCS: 36415; 80053; 82728; 83540; 83550; 85025

== ENCOUNTER → 2025-05-15 | Outpatient (CLI) | payer MEDICARE, OTHER ==
--- NOTE | 2025-05-15 11:32 | US ---
EXAMINATION TYPE: US bladder DATE OF EXAM: 05/15/2025 COMPARISON: NONE CLINICAL INDICATION: Male, 65 years old with history of R33.8 OTHER RETENTION OF URINE; Recent hip lee rgery with difficulty voiding TECHNIQUE: Grayscale and color doppler imaging of the bilateral kidneys and urinary bladder. 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 Bilateral Jets seen Normal Post Void Residual (less than 50ml): Yes IMPRESSION: No discrete abnormality seen. [facility], , 05/15/2025 11:30 AM
== END | disposition home or self-care (01) ==
LOC: RADUSWWP 09:57
PROVIDERS: ATTEND Family Medicine
DX: R33.8 Other retention of urine (principal); N99.89 Other postprocedural complications and disorders of genitourinary system
CPT/HCPCS: 76857